=== PATIENT | female | born 1950 | race Caucasian/White ===

== ENCOUNTER 2017-02-26 23:09 | Inpatient (IN) | payer MEDICARE, OTHER ==
--- NOTE | 2017-02-27 | NUR ---
GPS RN NOTES: ADMITTED A 66-Y/O FEMALE FROM [facility]. PATIENT CAME IN THE UNIT VIA GURNEY ACCOMPANIED BY 2 EMT'S. PATIENT ADMITTED ON VOLUNTARY STATUS. PATIENT HAS ADMITTING DIAGNOSIS OF ANXIETY, DEPRESSION AND MEDICAL HISTORY OF HYPERTENSION. UPON FACE TO FACE PATIENT IS ALERT, ORIENTED X 3, CALM AND COOPERATIVE. PATIENT WAS PLACED IN BED COMFORTABLY. SHOW NO S/S OF ANY DISCOMFORT. RESPIRATION EVEN, BREATHING PATTERN NON-LABORED, SKIN INTACT. AMBULATORY. PATIENT IS UNDER THE PSYCHIATRIC CARE OF DR. FERNÁNDEZ, ORDERS OBTAINED, AND UNDER THE MEDICAL CARE OF DR. HEBERT AND NOTIFIED TO RECONCILE MEDS. FAMILY AT BEDSIDE. BELONGINGS INVENTORIED AND CHECKED FOR CONTRABAND. WILL CONTINUE TO MONITOR Q15 MINS FOR SAFETY AND BEHAVIOR.
[2017-02-27 00:01] VITALS: BP 123/58
[2017-02-27] MEDS ORDERED: ACETAMINOPHEN 325 MG TABLET PO PRN (01:00)
[2017-02-27] MEDS ORDERED: MAG HYDROX/AL HYDROX/SIMETH 30 ML UDC PO PRN (01:00)
[2017-02-27] MEDS ORDERED: MAGNESIUM HYDROXIDE 30 ML UDC PO PRN (01:00)
--- NOTE | 2017-02-27 01:00 | NUR ---
GPS RN NOTES: PLACED A CALL TO DR. FRITZ HEBERT REGARDING MED RECONCILIATION. AWAITING CALL BACK FROM .
[2017-02-27] MEDS ORDERED: LEVO125T8 PO (01:53)
[2017-02-27] MEDS ORDERED: TRAZ-144 PO (01:53)
[2017-02-27] MEDS ORDERED: LISI-607 PO (01:53)
[2017-02-27] MEDS ORDERED: ATOR20TA PO (01:53)
[2017-02-27] MEDS ORDERED: ASPI-1169 PO (01:53)
[2017-02-27] MEDS ORDERED: BENA40TA67 PO (01:53)
[2017-02-27] MEDS ORDERED: FAMO20TA8 PO (01:53)
[2017-02-27] MEDS ORDERED: LAMO100T2 PO (01:53)
[2017-02-27] MEDS ORDERED: ESCI20TA PO (01:53)
[2017-02-27 02:44] VITALS: BP 123/58
[2017-02-27 03:48] VITALS: BP 123/58
[2017-02-27 08:00] VITALS: BP 110/71
[2017-02-27] MEDS ORDERED: LORA0.5T PO (08:07)
[2017-02-27] MEDS ORDERED: LEVO88TA5 PO (08:07)
[2017-02-27] MEDS: BENAZEPRIL HCL 5 MG TABLET PO SCH (09:51)
[2017-02-27] MEDS: LEVOTHYROXINE SODIUM 88 MCG TABLET PO SCH (09:53)
[2017-02-27] MEDS: LORAZEPAM 0.5 MG TABLET PO PRN ×2 (09:53→20:59)
--- NOTE | 2017-02-27 09:53 | NUR ---
OCG-[id number]: GAVE ATIVAN 0.5 MG PO DUE TO SEVERE ANXIETY UPON PT REQUEST AND WILL CONTINUE TO MONITOR FOR EFFECTIVENESS OF MEDICATION
[2017-02-27] MEDS: ESCITALOPRAM OXALATE (10 MG) 10 MG TABLET PO SCH (13:33)
[2017-02-27] MEDS: LamoTRIgine 100 MG TABLET PO SCH ×2 (13:33→20:59)
[2017-02-27] MEDS: QUETIAPINE FUMARATE 25 MG TABLET PO SCH ×2 (13:34→16:07)
[2017-02-27 16:11] VITALS: BP 120/60
[2017-02-27 20:03] VITALS: BP 120/66
--- NOTE | 2017-02-27 21:00 | NUR ---
GPS RN NOTE PATIENT REQUESTED ATIVAN 0.5MG. ADMINISTERED SAFELY ORDERED.
[2017-02-27] MEDS: TEMAZEPAM 7.5 MG CAPSULE PO PRN (21:40)
--- NOTE | 2017-02-27 21:40 | NUR ---
GPS RN NOTE PATIENT REQUESTING SLEEPING AIDE. RESTORIL 7.5MG ADMINISTERED SAFELY.
--- NOTE | 2017-02-27 22:20 | NUR ---
GPS RN NOTE PATIENT SLEEPING AT THIS TIME.
[2017-02-28 06:59] LABS: ALBUMIN 3.4 g/dL (3.4-5.0); BILIRUBIN,TOTAL 0.2 mg/dL (0.2-1.0); CALCIUM, SERUM 8.9 mg/dL (8.5-10.1); POTASSIUM 4.4 mmol/L (3.5-5.1); TOTAL PROTEIN, SERUM 6.7 g/dL (6.4-8.2)
[2017-02-28 07:03] LABS: BASOPHILS % (AUTO) 0.3 % (0.0-2.0); EOSINOPHILS # (AUTO) 0.4 /CMM (0.0-0.7); HEMATOCRIT 38 % (33-45); HEMOGLOBIN 12.8 g/dL (11.5-14.8); LYMPHOCYTES # (AUTO) 1.7 /CMM (0.8-4.8); LYMPHOCYTES % (AUTO) 22.5 % (20.0-44.0); MEAN CORPUSCULAR HEMOGLOBIN 28 PG (26.0-33.0); MEAN CORPUSCULAR HGB CONC 33 g/dl (31.0-36.0); MEAN CORPUSCULAR VOLUME 86 fL (82-100); MONOCYTES # (AUTO) 0.4 /CMM (0.1-1.30); MONOCYTES % (AUTO) 4.8 % (2.0-12.0); NEUTROPHILS % (AUTO) 67.4 % (43.0-81.0); PLATELET COUNT (AUTO) 207 /CMM (150-450); RDW COEFFICIENT OF VARIATION 12.9 (11.5-15.0); RED BLOOD CELL COUNT(AUTO) 4.49 MIL/uL (4.0-5.2); WHITE BLOOD COUNT (AUTO) 7.4 K/uL (4.3-11.0)
[2017-02-28] MEDS: LEVOTHYROXINE SODIUM 88 MCG TABLET PO SCH (07:30)
[2017-02-28 07:31] LABS: CHOLESTEROL 128 mg/dL (<200); HDL CHOLESTEROL 62 mg/dL (40-60); LDL 50 mg/dL (0-99); TRIGLYCERIDES 58 mg/dL (30-150)
[2017-02-28 08:00] VITALS: BP 135/72
[2017-02-28] MEDS: ASPIRIN 81 MG TAB.CHEW PO SCH (09:00)
[2017-02-28] MEDS: LamoTRIgine 100 MG TABLET PO SCH ×2 (09:03→21:46)
[2017-02-28] MEDS: QUETIAPINE FUMARATE 25 MG TABLET PO SCH ×2 (09:03→18:17)
[2017-02-28] MEDS: BENAZEPRIL HCL 5 MG TABLET PO SCH (09:03)
[2017-02-28] MEDS: ESCITALOPRAM OXALATE (10 MG) 10 MG TABLET PO SCH (09:05)
[2017-02-28 16:00] VITALS: BP 142/84
[2017-02-28] MEDS: ATORVASTATIN 10 MG TABLET PO SCH (21:46)
[2017-02-28 21:51] VITALS: BP 126/78
[2017-02-28] MEDS: LORAZEPAM 0.5 MG TABLET PO PRN (21:56)
[2017-02-28] MEDS ORDERED: QUETIAPINE FUMARATE 25 MG TABLET PO SCH (22:00)
[2017-03-01] MEDS: TEMAZEPAM 7.5 MG CAPSULE PO PRN (00:33)
[2017-03-01] MEDS: LEVOTHYROXINE SODIUM 88 MCG TABLET PO SCH (07:30)
[2017-03-01 08:00] VITALS: BP 133/74
[2017-03-01] MEDS: QUETIAPINE FUMARATE 25 MG TABLET PO SCH ×3 (09:21→17:00)
[2017-03-01] MEDS: LamoTRIgine 100 MG TABLET PO SCH ×2 (09:21→21:30)
[2017-03-01] MEDS: ASPIRIN 81 MG TAB.CHEW PO SCH (09:23)
[2017-03-01] MEDS: ESCITALOPRAM OXALATE (10 MG) 10 MG TABLET PO SCH (09:23)
[2017-03-01] MEDS: BENAZEPRIL HCL 5 MG TABLET PO SCH (09:23)
[2017-03-01 16:14] VITALS: BP 144/80
--- NOTE | 2017-03-01 16:23 | NUR ---
Initial Discharge Plan: [place] [address] [place] [address]; [phone] and initially reported wanting to return home upon discharge. Pt later stated being unsure if she wanted to return home and agreed that perhaps she could stay with one of her sons. SW attempted to speak to Alex Alford [phone] however he did not answer and SW left contact information. SW will follow up. SW will ensure pt is properly and safely discharged.
[2017-03-01 19:57] VITALS: BP 137/66
[2017-03-01] MEDS: ATORVASTATIN 10 MG TABLET PO SCH (21:31)
[2017-03-01] MEDS: LORAZEPAM 0.5 MG TABLET PO PRN (21:34)
[2017-03-01] MEDS ORDERED: QUETIAPINE FUMARATE 25 MG TABLET PO SCH (22:00)
[2017-03-02] MEDS: LEVOTHYROXINE SODIUM 88 MCG TABLET PO SCH (07:30)
[2017-03-02 08:00] VITALS: BP 133/74
[2017-03-02] MEDS: ASPIRIN 81 MG TAB.CHEW PO SCH (09:19)
[2017-03-02] MEDS: LamoTRIgine 100 MG TABLET PO SCH ×2 (09:19→22:22)
[2017-03-02] MEDS: QUETIAPINE FUMARATE 25 MG TABLET PO SCH ×3 (09:20→17:27)
[2017-03-02] MEDS: ESCITALOPRAM OXALATE (10 MG) 10 MG TABLET PO SCH (09:20)
[2017-03-02] MEDS: BENAZEPRIL HCL 5 MG TABLET PO SCH (09:20)
[2017-03-02 15:58] VITALS: BP 114/60
--- NOTE | 2017-03-02 17:47 | NUR ---
RN-CO: PER PATIENT SHE HAD 1 EPISODE OF BM BUT NOT WATERY. RATHER, IT IS FORMED BUT SOFT.
--- NOTE | 2017-03-02 19:20 | NUR ---
GPS RN NOTE: PER SP[facility] MILLER EVANS PORRAS, ITS OK TO SEND STOOL FOR C-DIFF EVEN IF THE STOOL IS NOT WATERY OR FORMED. WILL CONTINUE TO MONITOR
[2017-03-02 20:48] VITALS: BP 146/88
[2017-03-02] MEDS ORDERED: QUETIAPINE FUMARATE 25 MG TABLET PO SCH (22:00)
[2017-03-02] MEDS: ATORVASTATIN 10 MG TABLET PO SCH (22:21)
[2017-03-02] MEDS: LORAZEPAM 0.5 MG TABLET PO PRN (22:21)
[2017-03-03] MEDS: LORAZEPAM 0.5 MG TABLET PO PRN ×2 (00:34→20:13)
--- NOTE | 2017-03-03 06:56 | NUR ---
GPS RN NOTE: NO STOOL NOTED THE WHOLE SHIFT, WILL ENDORSE TO THE NEXT SHIFT TO CONTINUE TO MONITOR AND TO COLLECT STOOL FOR C-DIFF TEST.
[2017-03-03 08:00] VITALS: BP 132/82
[2017-03-03 08:24] LABS: BASOPHILS % (AUTO) 0.5 % (0.0-2.0); EOSINOPHILS % (AUTO) 0.7 % (0.0-6.0); HEMATOCRIT 41 % (33-45); HEMOGLOBIN 14.1 g/dL (11.5-14.8); LYMPHOCYTES % (AUTO) 38.8 % (20.0-44.0); MEAN CORPUSCULAR HEMOGLOBIN 29 PG (26.0-33.0); MEAN CORPUSCULAR HGB CONC 34 g/dl (31.0-36.0); MEAN CORPUSCULAR VOLUME 85 fL (82-100); MONOCYTES # (AUTO) 0.5 /CMM (0.1-1.30); MONOCYTES % (AUTO) 9.2 % (2.0-12.0); NEUTROPHILS # (AUTO) 2.6 /CMM (1.8-8.9); NEUTROPHILS % (AUTO) 50.8 % (43.0-81.0); PLATELET COUNT (AUTO) 222 /CMM (150-450); RDW COEFFICIENT OF VARIATION 12.9 (11.5-15.0); RED BLOOD CELL COUNT(AUTO) 4.88 MIL/uL (4.0-5.2); WHITE BLOOD COUNT (AUTO) 5.1 K/uL (4.3-11.0)
[2017-03-03 08:46] LABS: CREATININE 0.9 mg/dL (0.6-1.3); POTASSIUM 3.1 mmol/L (3.5-5.1)
[2017-03-03] MEDS: QUETIAPINE FUMARATE 25 MG TABLET PO SCH ×3 (08:48→16:11)
[2017-03-03] MEDS: LEVOTHYROXINE SODIUM 88 MCG TABLET PO SCH (08:48)
[2017-03-03] MEDS: ESCITALOPRAM OXALATE (10 MG) 10 MG TABLET PO SCH (08:48)
[2017-03-03] MEDS: BENAZEPRIL HCL 5 MG TABLET PO SCH (08:49)
[2017-03-03] MEDS: ASPIRIN 81 MG TAB.CHEW PO SCH (08:49)
--- NOTE | 2017-03-03 09:00 | NUR ---
GPS/RN PATIENT IS AWARE OF NEED TO PROVIDE STOOL SAMPLE, EXPLAINED HOW TO USE HAT AND TO NOTIFY STAFF OF BOWEL MOVEMENT FOR COLLECTION OF STOOL SAMPLE FOR C-DIFF LAB TESTING.
[2017-03-03] MEDS: LamoTRIgine 100 MG TABLET PO SCH ×2 (09:10→20:13)
[2017-03-03] MEDS ORDERED: POTASSIUM CHLORIDE 20 MEQ TAB.PRT.SR PO ONE (10:00)
--- NOTE | 2017-03-03 12:04 | NUR ---
Discharge Planning: SW spoke to pts son, Alex Alford for discharge planning purposes. Per conversation with son, he is unable to care for his mother at his home, "because my and I work and she needs someone to be with her." Pts son reported that she can return home to live with her sisters (Liza and Azalea) once she is more stable. Pt and son agreed to look for alternative care (i.e. SNF or Assisted living). SW will follow up and ensure pt is properly and safely discharged.
--- NOTE | 2017-03-03 15:45 | NUR ---
Discharge Planning: ESTELA spoke with patient's sister, Liza [phone]. Liza stated that the family "would love" to have patient back home once she is stable. Liza advised ESTELA to call patient's eldest son, Chu at [phone], as he is involved in the discharge plan for his mother. Liza stated that Chu is flying in to [facility] tomorrow morning and will be visiting his mother. ESTELA called and spoke with pt's eldest son, Chu at [phone]. Chu stated that the family is conflicted as to what to do, but are thinking that a SNF would be the best option for his mom. ESTELA will follow up with Chu tomorrow.
[2017-03-03 16:00] VITALS: BP 154/89
--- NOTE | 2017-03-03 17:42 | NUR ---
GPS/RN INSTRUCTED PATIENT ON NEED TO PROVIDE STOOL SAMPLE THROUGHOUT SHIFT, AND TO ALERT STAFF WHEN SHE HAS BOWEL MOVEMENT FOR COLLECTION OF STOOL SAMPLE FOR C-DIFF LAB TEST, NO SAMPLE PROVIDED AT THIS TIME,WILL ENDORSE TO ONCOMING SHIFT TO FOLLOW UP WITH COLLECTION OF SAMPLE.
[2017-03-03 20:00] VITALS: BP 152/92
[2017-03-03] MEDS ORDERED: QUETIAPINE FUMARATE 25 MG TABLET PO SCH (22:00)
[2017-03-03] MEDS: ATORVASTATIN 10 MG TABLET PO SCH (22:17)
[2017-03-04 08:00] VITALS: BP 128/72
[2017-03-04] MEDS: ESCITALOPRAM OXALATE (10 MG) 10 MG TABLET PO SCH (08:35)
[2017-03-04] MEDS: LEVOTHYROXINE SODIUM 88 MCG TABLET PO SCH (08:35)
[2017-03-04] MEDS: QUETIAPINE FUMARATE 25 MG TABLET PO SCH ×3 (08:36→16:39)
[2017-03-04] MEDS: LamoTRIgine 100 MG TABLET PO SCH ×2 (08:36→22:40)
[2017-03-04] MEDS: ASPIRIN 81 MG TAB.CHEW PO SCH (08:36)
[2017-03-04] MEDS: BENAZEPRIL HCL 5 MG TABLET PO SCH (08:37)
[2017-03-04 16:00] VITALS: BP 128/61
[2017-03-04] MEDS: LORAZEPAM 0.5 MG TABLET PO PRN (19:54)
--- NOTE | 2017-03-04 19:54 | NUR ---
PATIENT IS VERY ANXIOUS, FAMILY AT THE BEDSIDE. TRIES TO PACIFY HER. LORAZEPAM 0.5 MG TAB 1 PO GIVEN.
[2017-03-04 20:00] VITALS: BP 148/86
[2017-03-04] MEDS ORDERED: QUETIAPINE FUMARATE 25 MG TABLET PO SCH (22:00)
[2017-03-04] MEDS: ATORVASTATIN 10 MG TABLET PO SCH (22:41)
[2017-03-05 08:00] VITALS: BP 119/68
[2017-03-05] MEDS: LEVOTHYROXINE SODIUM 88 MCG TABLET PO SCH (08:08)
[2017-03-05] MEDS: LamoTRIgine 100 MG TABLET PO SCH ×2 (08:08→20:19)
[2017-03-05] MEDS: ESCITALOPRAM OXALATE (10 MG) 10 MG TABLET PO SCH (08:09)
[2017-03-05] MEDS: BENAZEPRIL HCL 5 MG TABLET PO SCH (08:09)
[2017-03-05] MEDS: ASPIRIN 81 MG TAB.CHEW PO SCH (08:09)
[2017-03-05] MEDS: QUETIAPINE FUMARATE 25 MG TABLET PO SCH ×2 (08:11→21:44)
[2017-03-05 08:53] LABS: CALCIUM, SERUM 8.4 mg/dL (8.5-10.1); CREATININE 0.7 mg/dL (0.6-1.3); POTASSIUM 3.7 mmol/L (3.5-5.1)
[2017-03-05 16:00] VITALS: BP 145/69
[2017-03-05 20:00] VITALS: BP 149/84
[2017-03-05] MEDS: LORAZEPAM 0.5 MG TABLET PO PRN (20:19)
--- NOTE | 2017-03-05 20:20 | NUR ---
Lorazepam 0.5 mg tab 1 po given for anxiety
[2017-03-05] MEDS: ATORVASTATIN 10 MG TABLET PO SCH (21:43)
[2017-03-06 08:00] VITALS: BP 115/53
[2017-03-06] MEDS: LEVOTHYROXINE SODIUM 88 MCG TABLET PO SCH (08:03)
[2017-03-06] MEDS: ASPIRIN 81 MG TAB.CHEW PO SCH (08:03)
[2017-03-06] MEDS: ESCITALOPRAM OXALATE (10 MG) 10 MG TABLET PO SCH (08:03)
[2017-03-06] MEDS: BENAZEPRIL HCL 5 MG TABLET PO SCH (08:04)
[2017-03-06] MEDS: LamoTRIgine 100 MG TABLET PO SCH ×2 (08:04→22:24)
--- NOTE | 2017-03-06 13:53 | NUR ---
ASSUMED CARE, RECEIVED PT. IN HER ROOM WITH VISITORS, NO SIGN OF DISTRESS AND NO AGITATION NOTED. WILL CONTINUE TO MONITOR FOR SAFETY.
[2017-03-06 16:04] VITALS: BP 120/69
[2017-03-06] MEDS: LORAZEPAM 0.5 MG TABLET PO PRN (20:35)
[2017-03-06 21:17] VITALS: BP 129/75
[2017-03-06] MEDS: ATORVASTATIN 10 MG TABLET PO SCH (22:24)
[2017-03-06] MEDS: QUETIAPINE FUMARATE 25 MG TABLET PO SCH (22:25)
[2017-03-07 08:00] VITALS: BP 124/62
[2017-03-07] MEDS: LEVOTHYROXINE SODIUM 88 MCG TABLET PO SCH (08:39)
[2017-03-07] MEDS: LamoTRIgine 100 MG TABLET PO SCH ×2 (08:39→21:51)
[2017-03-07] MEDS: ESCITALOPRAM OXALATE (10 MG) 10 MG TABLET PO SCH (08:39)
[2017-03-07] MEDS: BENAZEPRIL HCL 5 MG TABLET PO SCH (08:39)
[2017-03-07] MEDS: ASPIRIN 81 MG TAB.CHEW PO SCH (08:39)
[2017-03-07 16:03] VITALS: BP 121/64
[2017-03-07 20:03] VITALS: BP 136/76
[2017-03-07] MEDS: ATORVASTATIN 10 MG TABLET PO SCH (21:51)
[2017-03-07] MEDS: QUETIAPINE FUMARATE 25 MG TABLET PO SCH (21:51)
[2017-03-08] MEDS: LEVOTHYROXINE SODIUM 88 MCG TABLET PO SCH (07:30)
[2017-03-08 08:00] VITALS: BP 125/75
[2017-03-08] MEDS: ASPIRIN 81 MG TAB.CHEW PO SCH (09:23)
[2017-03-08] MEDS: LamoTRIgine 100 MG TABLET PO SCH ×2 (09:24→21:13)
[2017-03-08] MEDS: ESCITALOPRAM OXALATE (10 MG) 10 MG TABLET PO SCH (09:24)
[2017-03-08] MEDS: BENAZEPRIL HCL 5 MG TABLET PO SCH (09:24)
--- NOTE | 2017-03-08 10:50 | NUR ---
Discharge Planning: ESTELA spoke to Lianna Allan, from [facility] for discharge planning purposes. ESTELA discussed facility coming out to assess patient within the next 2 days. Per Lianna, she will confirm the date and time when Robyn from the facility can come and assess patient. ESTELA also discussed pts family touring the facility prior to accepting placement. ESTELA will follow up with patient's family to ensure pt is properly and safely discharged.
--- NOTE | 2017-03-08 10:56 | NUR ---
Discharge Planning: ESTELA contacted pts eldest son, Chu to provide him with an update regarding mother's discharge plan. Pts son was unavailable. SW left a detailed message; including asking for a call back at his earliest convenience. ESTELA will follow up with other family members to provide them with an update regarding mother's plan for discharge.
--- NOTE | 2017-03-08 11:03 | NUR ---
Discharge Planning: SW contacted pts son, Alex Alford to provide him with an update regarding mother's plan for discharge. SW provided pts sonAlex with contact information for the [facility] and encouraged him to call Lianna Allan, from admissions to schedule a tour of the facility. ESTELA will follow up.
--- NOTE | 2017-03-08 11:06 | NUR ---
Discharge Planning: ESTELA coordinated with Lianna Allan for Robyn from [facility] to come in at 2pm and assess pts appropriateness for their facility on this date.
[2017-03-08 15:46] VITALS: BP 129/75
[2017-03-08 20:46] VITALS: BP 139/78
[2017-03-08] MEDS: ATORVASTATIN 10 MG TABLET PO SCH (21:13)
[2017-03-08] MEDS ORDERED: QUETIAPINE FUMARATE 25 MG TABLET ONE (21:42)
[2017-03-08] MEDS: QUETIAPINE FUMARATE 25 MG TABLET PO SCH (21:47)
[2017-03-09] MEDS: LEVOTHYROXINE SODIUM 88 MCG TABLET PO SCH (07:30)
[2017-03-09] MEDS: BENAZEPRIL HCL 5 MG TABLET PO SCH (09:19)
[2017-03-09] MEDS: LamoTRIgine 100 MG TABLET PO SCH ×2 (09:19→21:25)
[2017-03-09] MEDS: ESCITALOPRAM OXALATE (10 MG) 10 MG TABLET PO SCH (09:19)
[2017-03-09] MEDS: ASPIRIN 81 MG TAB.CHEW PO SCH (09:19)
[2017-03-09 09:39] VITALS: BP 108/60
--- NOTE | 2017-03-09 09:45 | NUR ---
Discharge Planning: ESTELA spoke to Chu, pts eldest son for discharge planning purposes. ESTELA gathered that pts sister Liza had visited the [facility] the previous day and was not pleased with the facility. Chu inquired about other facilities ([facility] and [facility]). ESTELA informed pts son that an inquiry had been faxed to [facility] on 03/04/18 with no response as well as [facility] . Per pts son Chu he will call the facilities named above to see if they have a bed available. ESTELA informed pts son that once psychiatrist granted pts release she would be ready to discharge from the hospital. Pts son agreed that if the family was unsuccessful in solidifying placement in the above facilities and pt was ready for discharge she could be transported to [facility]. Pts son stated, "That is safer than going home." SW will follow up to ensure pt is properly and safely placed.
--- NOTE | 2017-03-09 10:00 | NUR ---
Discharge Planning: ESTELA spoke to Cece from [facility] from admissions fax # who acknowledged pts son Chu had contacted the facility inquiring about placement. ESTELA faxed inquiry to facility on this date. ESTELA will follow up to ensure pt is properly and safely discharged.
--- NOTE | 2017-03-09 11:19 | NUR ---
Discharge Planning: SW received a call from Antonina, Media Traffic Manager from [facility] informing that pt does not meet criteria for the facility (based on diagnosis). Pts primary diagnosis is Bipolar. ESTELA will follow up with pts son Chu to provide him with an update.
--- NOTE | 2017-03-09 11:23 | NUR ---
Discharge Planning: ESTELA contacted [facility], and spoke to Margarette from Admissions to follow up on inquiry faxed on 03/04/2017. Per Margarette, she has not reviewed it however will do so and get back to me on this date with an update. ESTELA will follow up.
[2017-03-09 16:35] VITALS: BP 122/69
[2017-03-09 20:19] VITALS: BP 126/56
[2017-03-09] MEDS: ATORVASTATIN 10 MG TABLET PO SCH (21:26)
[2017-03-09] MEDS: QUETIAPINE FUMARATE 25 MG TABLET PO SCH (21:26)
[2017-03-10 08:00] VITALS: BP 122/67
--- NOTE | 2017-03-10 08:31 | NUR ---
Discharge Planning: ESTELA confirmed pts acceptance to the [facility] on yesterday's date. Per Chanel from Admissions pt can discharge to facility once she is ready and stable. ESTELA contacted pts sister Liza to provide her with the information. Pts sister was pleased and stated she would call the facility to schedule a tour. ESTELA will follow up with pts son Chu to provide him with the information as well.
[2017-03-10] MEDS: LEVOTHYROXINE SODIUM 88 MCG TABLET PO SCH (08:33)
[2017-03-10 08:43] VITALS: BP 122/67
[2017-03-10] MEDS: ASPIRIN 81 MG TAB.CHEW PO SCH (08:43)
[2017-03-10] MEDS: BENAZEPRIL HCL 5 MG TABLET PO SCH (08:43)
[2017-03-10] MEDS: ESCITALOPRAM OXALATE (10 MG) 10 MG TABLET PO SCH (08:43)
[2017-03-10] MEDS: LamoTRIgine 100 MG TABLET PO SCH (08:43)
--- NOTE | 2017-03-10 10:31 | NUR ---
DR. FERNÁNDEZ GAVE AN ORDER TO D/C HOLD AND D/C TO [facility] AND TO CONTINUE MEDS INCLUDING PRN. PT. TO FOLLOW UP WITH PSYCH AND MEDICAL DOCTORS.
--- NOTE | 2017-03-10 14:28 | NUR ---
GPS/RN-NOTES PATIENT DISCHARGE TO [facility] TODAY. DR. FERNÁNDEZ AND CUSTOM DECORATING CONSULTANT VERN AWARE AND AGREES OF PATIENT DISCHARGE. REPORT WAS GIVEN TO ROYAL ( NURSING EDUCATION CONSULTANT). PATIENT DID NOT VERBALIZE SI/HI,DENIES VISUAL/AUDITORY HALLUCINATIONS AT THE TIME OF DISCHARGE. ALL DISCHARGE MEDICATIONS WAS REVIEWED WITH THE PATIENT WITH UNDERSTANDING. PATIENT SISTER KO ([phone]) MADE AWARE OF PATIENT DISCHARGE. PATIENT LEFT THE UNIT IN STABLE CONDITION WITH ALL HER BELONGINGS. MARKER DELIVERY BY AMBULANCE VIA [facility] WITH TWO STAFF ASSIST.
== END 2017-03-10 14:28 | DRG 885 ==
LOC: GPS 23:09
PROVIDERS: ADMIT Psychiatry & Neurology Psychosomatic Medicine; ATTEND Psychiatry & Neurology Psychosomatic Medicine
DX: F25.0 Schizoaffective disorder, bipolar type (principal); F29 Unspecified psychosis not due to a substance or known physiological condition; B34.9 Viral infection, unspecified; E03.9 Hypothyroidism, unspecified; E78.5 Hyperlipidemia, unspecified; Z73.6 Limitation of activities due to disability; E87.6 Hypokalemia; F41.9 Anxiety disorder, unspecified; I10 Essential (primary) hypertension; Z79.899 Other long term (current) drug therapy; F32.9 Major depressive disorder, single episode, unspecified
CPT/HCPCS: 36415; 80048-TC; 80053-TC; 80061-TC; 85025-TC; 87081-TC